=== PATIENT | female | born 1955 | race Caucasian/White ===

== ENCOUNTER → 2017-02-02 | Day surgery (SDC) | payer MEDICARE, BC ==
[~2017-02-02] MED LIST: ACTOS PO; ALPRAZOLAM ER0.5 MG PO; ALPRAZOLAM PO; ALPRAZOLAM0.5 MG PO; AMITRIPTYLINE H25 MG PO; AMITRYPTYLINE PO; ATENOLOL PO; AVAPRO PO; AVAPRO75 MG PO; BLACK COHOSH200 MG PO; BLACK COHOSH40 M1 PO; BLACK COHOSH540 MG PO; COLCHICINE PO; COLCHICINE0.6 M1 PO; DEXILANT60 MG PO; FLEXERIL PO; GLUCOTROL PO; GLUCOTROL XL10 MG PO; HYDROCODON-ACE1 EAC7 PO; IBUPROFEN800 MG PO; INDERAL LA120 MG PO; INDERAL XL120 MG PO; JANUVIA PO; JANUVIA50 MG PO; LASIX20 MG PO; MAGNESIUM400 M1 PO; NEURONTIN100 MG PO; NOVOLIN 70/30 U13 M1 SQ; NOVOLIN 70/30 V10 ML INJ; NOVOLIN 70100 UNITS/; NOVOLIN 70100 UNITS/ INJ; NOVOLIN 70100 UNITS/ SUBQ; PROPRANOLOL HCL20 MG PO; PROTONIX PO; SIMVASTATIN80 MG PO; SYNTHROID PO; SYNTHROID88 MCG PO; TRAMADOL HCL50 M1 PO; TRAMADOL HCL50 M2 PO; ULORIC40 MG PO; VICODIN 5/500 T1 TAB PO; VITAMIN D1000 UNIT PO; VITAMIN D3 COM1 EACH PO; ZETIA PO; ZOCOR PO; ZOCOR80 MG PO
--- NOTE | ~2017-02-02 | OR ---
Unit #: [id number] #: [id number] Patient: KEN HIRSCH [id number] [address] [address] [id number] MR#: [id number] NAME: KEN HIRSCH ROOM: Date of Procedure: 02/02/2017 Admission Date: 02/02/2017 Surgeon: Morgan Gregory M.D. : 1955 Attending Physician: Morgan Gregory M.D. Primary Care Physician: Marv Daugherty M.D. OPERATIVE REPORT PREOPERATIVE DIAGNOSES 1. Back pain. 2. Radiculopathy. 3. Degenerative lumbar disk disease. POSTOPERATIVE DIAGNOSES 1. Back pain. 2. Radiculopathy. 3. Degenerative lumbar disk disease. PROCEDURE PERFORMED Lumbar epidural steroid injection with intravenous sedation and fluoroscopic guidance for needle localization. INDICATIONS FOR PROCEDURE The patient is a 64-year-old female, who presents with return of back and right greater than left lower extremity pain due to multilevel degenerative disk osteophyte disease from L3-S1. She has done well with single epidural steroid injections done over the last several years. Last injection was done in March. The pain has been increasing over the last 2 months or so. Based on history, pathology, and symptomatology, we are going to proceed with a repeat injection today. DESCRIPTION OF PROCEDURE The patient was placed in a seated position. Standard monitors were applied. 2 mg of Versed were given for sedation and anxiolysis, which were adequate. Vital signs remained stable. Sterile prep and drape then of the lumbar area was performed. The skin at the L4 level was localized with 1% lidocaine. An 18-gauge Hustead needle was then advanced via loss of resistance technique and fluoroscopic guidance in toward the epidural space. The patient did not complain of any pain or paresthesia during needle advancement. After confirming proper positioning, a dose 80 mg of Depo-Medrol and 4 mL of 0.125% bupivacaine were deposited. The patient tolerated the procedure otherwise well and was discharged to the recovery room in stable condition. Dictated by... Morgan Gregory M.D. LHP/modl Unit #: [id number] #: [id number] Patient: KEN HIRSCH TD: 02/03/2017 00:15 JOB #: [id number] OPERATIVE REPORT X Morgan Gregory MD X PROCEDURE OPERATIVE NOTE
== END | disposition home or self-care (01) ==
LOC: CCSC 09:12
DX: M51.16 Intervertebral disc disorders with radiculopathy, lumbar region (principal); E11.9 Type 2 diabetes mellitus without complications; I10 Essential (primary) hypertension
CPT/HCPCS: J1040; J2250